=== PATIENT | male | born 1955 | race American Indian/Alaskan Native ===

== ENCOUNTER 2019-05-13 06:59 | Outpatient (CLI) | payer MEDICARE ==
--- NOTE | 2019-05-13 08:43 | Magnetic Resonance Report ---
MR CERVICAL SPINE WITHOUT CONTRAST HISTORY: Cervical radiculopathy. TECHNIQUE: Axial T2 and T2 gradient. Sagittal T1, T2 and STIR. COMPARISON: Cervical spine films dated 04/02/19. FINDINGS: The cervical spinal cord is normal size and signal intensity throughout. No abnormal intramedullary signal is detected. Normal height and alignment of the cervical vertebral bodies. Modic degenerative endplate changes are noted at C4-5. No evidence for bone lesion or fracture. There is diffuse disc desiccation. Mild disc space narrowing is noted at C3-4, C4-5, C5-6 and C6-7. The facet joints are in appropriate relationship. Mild diffuse facet arthropathy is identified. No hypertrophic changes. The paraspinal soft tissues are within normal limits. C2-3: No significant abnormality. C3-4: Mild posterior and moderate left uncovertebral spurring are identified. Left neural foraminal narrowing is estimated at 50-75%. C4-5: Mild posterior and moderate bilateral uncovertebral spurring are identified. There is moderate bilateral neural foraminal narrowing estimated at 50-75%. C5-6: Moderate posterior and bilateral uncovertebral spurring are identified. Severe right neural foraminal narrowing is estimated at 75% or greater. Left neural foraminal narrowing is estimated at 50-75%. C6-7: Moderate posterior and left uncovertebral spurring are identified. Moderate to severe left neural foraminal narrowing is estimated at 75%. C7-T1: No significant abnormality. IMPRESSION: Moderate to severe multilevel degenerative disc disease is identified throughout the cervical spine as outlined above. There is multi-level neural foraminal narrowing. No central canal narrowing or abnormal cord signal is identified. No evidence for bone lesion, fracture or malalignment.
== END 2019-05-13 07:00 | disposition home or self-care (01) ==
LOC: MRI 06:59
PROVIDERS: ATTEND Internal Medicine Gastroenterology
DX: M50.323 Other cervical disc degeneration at C6-C7 level (principal); M48.02 Spinal stenosis, cervical region; I12.9 Hypertensive chronic kidney disease with stage 1 through stage 4 chronic kidney disease, or unspecified chronic kidney disease; E11.22 Type 2 diabetes mellitus with diabetic chronic kidney disease; N18.6 End stage renal disease; E78.00 Pure hypercholesterolemia, unspecified; J44.9 Chronic obstructive pulmonary disease, unspecified
CPT/HCPCS: 72141